=== PATIENT | male | born 1965 | race Caucasian/White ===

== ENCOUNTER 2019-12-29 10:48 | Emergency (ER) | payer OTHER, MEDICAID ==
[~2019-12-29] VITALS: Ht 198.1 cm; Wt 97.0 kg
[2019-12-29] MEDS ORDERED: SODIUM CHLORIDE 0.9% 1,000 ML IV ONE (11:48)
[2019-12-29 12:06] LABS: BASOPHILS % 0.5 % (0.0-2.0); EOSINOPHILS % 2.1 % (0.0-5.0); HEMATOCRIT. 38.8 % (42.0-52.0); HEMOGLOBIN. 13.1 g/dL (14.0-18.0); LYMPHOCYTES % 12.9 % (20.0-50.0); MEAN CORPUSCULAR VOLUME 85.8 fL (80.0-94.0); MEAN PLATELET VOLUME 8.5 fl (7.4-10.4); MONOCYTES % 12.2 % (2.0-8.0); NEUTROPHILS % 72.3 % (40.0-76.0); PLATELET 180 x1000/uL (130-400); RED BLOOD CELL COUNT 4.52 mill/uL (4.7-6.1); RED CELL DISTRIBUTION WIDTH 13.6 % (11.6-14.6)
[2019-12-29 12:12] LABS: CHLORIDE 106 mEq/L (98-107)
[2019-12-29 12:58] LABS: CLARITY URINE CLEAR (CLEAR); COLOR URINE YELLOW (YELLOW); KETONES URINE NEGATIVE (NEGATIVE); LEUKOCYTE ESTERASE URINE NEGATIVE (NEGATIVE); NITRITE URINE NEGATIVE (NEGATIVE); OCCULT BLOOD URINE NEGATIVE (NEGATIVE); PH URINE 5.5 (4.5-8.0); PROTEIN URINE NEGATIVE (NEGATIVE); SPECIFIC GRAVITY URINE 1.006 (1.005-1.030); UROBILINOGEN URINE 0.2 E.U./dL (0.2-1.0)
[2019-12-29 15:25] VITALS: BP 125/89
== END 2019-12-29 15:30 | disposition home or self-care (01) ==
LOC: ER 11:08
DX: B34.9 Viral infection, unspecified (principal); F12.10 Cannabis abuse, uncomplicated; Z88.0 Allergy status to penicillin; Z88.6 Allergy status to analgesic agent
CPT/HCPCS: 36415; 71045; 80053; 81003; 83880; 84484; 85025; 87804; 93005; 96360; 99285; J7030

== ENCOUNTER 2020-01-03 21:49 | Emergency (ER) | payer OTHER, MEDICAID ==
[~2020-01-03] VITALS: Ht 198.1 cm; Wt 90.0 kg
[2020-01-04 01:31] LABS: CLARITY URINE CLEAR (CLEAR); COLOR URINE YELLOW (YELLOW); KETONES URINE NEGATIVE (NEGATIVE); LEUKOCYTE ESTERASE URINE TRACE (NEGATIVE); NITRITE URINE NEGATIVE (NEGATIVE); OCCULT BLOOD URINE NEGATIVE (NEGATIVE); PH URINE 5.5 (4.5-8.0); PROTEIN URINE NEGATIVE (NEGATIVE); SPECIFIC GRAVITY URINE 1.018 (1.005-1.030); UROBILINOGEN URINE 0.2 E.U./dL (0.2-1.0)
[2020-01-04 02:18] LABS: HEMATOCRIT. 36.1 % (42.0-52.0); HEMOGLOBIN. 12.4 g/dL (14.0-18.0); MEAN CORPUSCULAR HEMOGLOBIN 29.3 pg (28.0-32.0); MEAN CORPUSCULAR VOLUME 85.4 fL (80.0-94.0); MEAN PLATELET VOLUME 8.3 fl (7.4-10.4); PLATELET 182 x1000/uL (130-400); RED BLOOD CELL COUNT 4.23 mill/uL (4.7-6.1); RED CELL DISTRIBUTION WIDTH 13.4 % (11.6-14.6)
[2020-01-04 02:22] LABS: CHLORIDE 108 mEq/L (98-107)
[2020-01-04 04:56] VITALS: BP 117/74
[2020-01-04 07:08] LABS: PLATELET ESTIMATE NORMAL
== END 2020-01-04 05:05 | disposition left against medical advice (07) ==
LOC: ER 21:49
DX: J20.9 Acute bronchitis, unspecified (principal); Z59.0 Homelessness; Z88.6 Allergy status to analgesic agent; Z88.0 Allergy status to penicillin
CPT/HCPCS: 36415; 71045; 80053; 81003; 83880; 85025; 87804; 99284

== ENCOUNTER 2020-01-04 08:27 | Emergency (ER) | payer OTHER, MEDICAID ==
[~2020-01-04] VITALS: Ht 198.1 cm; Wt 90.0 kg
[2020-01-04] MEDS ORDERED: VISCOUS LIDOCAINE 2% 15 ML UDC PO STA (11:08)
[2020-01-04] MEDS ORDERED: ACETAMINOPHEN 500MG TABLET PO ONE (11:15)
[2020-01-04 11:49] LABS: BASOPHILS % 0.8 % (0.0-2.0); EOSINOPHILS % 1.5 % (0.0-5.0); HEMATOCRIT. 37.4 % (42.0-52.0); HEMOGLOBIN. 12.8 g/dL (14.0-18.0); LYMPHOCYTES % 23.4 % (20.0-50.0); MEAN CORPUSCULAR HEMOGLOBIN 29.4 pg (28.0-32.0); MEAN CORPUSCULAR VOLUME 85.6 fL (80.0-94.0); MEAN PLATELET VOLUME 8.4 fl (7.4-10.4); MONOCYTES % 12.8 % (2.0-8.0); NEUTROPHILS % 61.5 % (40.0-76.0); PLATELET 166 x1000/uL (130-400); RED BLOOD CELL COUNT 4.37 mill/uL (4.7-6.1); RED CELL DISTRIBUTION WIDTH 13.3 % (11.6-14.6)
[2020-01-04 11:55] LABS: CHLORIDE 109 mEq/L (98-107)
[2020-01-04 13:41] VITALS: BP 127/82
== END 2020-01-04 14:54 | disposition home or self-care (01) ==
LOC: ER 09:43
DX: J02.9 Acute pharyngitis, unspecified (principal); Z88.6 Allergy status to analgesic agent; Z88.0 Allergy status to penicillin
CPT/HCPCS: 36415; 71045; 80053; 85025; 99284

== ENCOUNTER 2020-01-25 21:43 | Inpatient (IN) | payer OTHER, MEDICAID ==
[~2020-01-25] VITALS: Ht 195.6 cm; Wt 108.6 kg
[2020-01-25] MEDS ORDERED: CEFTRIAXONE 1 G PREMIX 50 ML IV ONE (23:30)
[2020-01-25] MEDS ORDERED: SODIUM CHLORIDE 0.9% 1000ML BAG (SEPSIS BOLUS) IV ONE (23:30)
[2020-01-26 01:18] LABS: BASOPHILS % 0.3 % (0.0-2.0); HEMATOCRIT. 39.4 % (42.0-52.0); HEMOGLOBIN. 13.9 g/dL (14.0-18.0); LYMPHOCYTES % 11.8 % (20.0-50.0); MEAN CORPUSCULAR HEMOGLOBIN 29.1 pg (28.0-32.0); MEAN CORPUSCULAR VOLUME 82.4 fL (80.0-94.0); MEAN PLATELET VOLUME 9.2 fl (7.4-10.4); MONOCYTES % 8.8 % (2.0-8.0); NEUTROPHILS % 79.1 % (40.0-76.0); PLATELET 157 x1000/uL (130-400); RED BLOOD CELL COUNT 4.78 mill/uL (4.7-6.1); RED CELL DISTRIBUTION WIDTH 13.4 % (11.6-14.6)
[2020-01-26 01:19] LABS: INR 1.3; PROTHROMBIN TIME 13.7 sec (9.6-11.0)
[2020-01-26 01:28] LABS: CHLORIDE 96 mEq/L (98-107)
[2020-01-26] MEDS ORDERED: POTASSIUM CHLORIDE INJ 40 MEQ in DEXT 5% WATER 250 ML IV ONE (02:15)
[2020-01-26 03:04] LABS: CLARITY URINE CLEAR (CLEAR); COLOR URINE YELLOW (YELLOW); KETONES URINE NEGATIVE (NEGATIVE); LEUKOCYTE ESTERASE URINE NEGATIVE (NEGATIVE); NITRITE URINE NEGATIVE (NEGATIVE); OCCULT BLOOD URINE NEGATIVE (NEGATIVE); PROTEIN URINE NEGATIVE (NEGATIVE); SPECIFIC GRAVITY URINE 1.009 (1.005-1.030); UROBILINOGEN URINE 0.2 E.U./dL (0.2-1.0)
[2020-01-26] MEDS ORDERED: SODIUM CHLORIDE 0.9% 1,000 ML IV ONE ×3 (03:45)
[2020-01-26] MEDS ORDERED: IPRATROPIUM/ALBUTEROL 0.5-3(2.5)MG/3ML NEB HHN PRN (08:45)
[2020-01-26] MEDS ORDERED: CLONIDINE 0.1MG TABLET PO PRN (08:45)
[2020-01-26] MEDS ORDERED: DIPHENHYDRAMINE 50MG/ML VIAL IV PRN (08:45)
[2020-01-26] MEDS ORDERED: ACETAMINOPHEN 325MG TABLET PO PRN (08:45)
[2020-01-26] MEDS ORDERED: ONDANSETRON HCL 4MG/2ML INJ IV PRN (08:45)
[2020-01-26] MEDS ORDERED: SODIUM CHLORIDE 0.9% 1,000 ML IV SCH (09:00)
[2020-01-26 10:00] VITALS: BP 95/60
[2020-01-26 11:00] VITALS: BP 95/60
[2020-01-26 12:00] VITALS: BP 100/62
[2020-01-26 16:00] VITALS: BP 97/64
[2020-01-26] MEDS: AZITHROMYCIN 500 MG TABLET PO SCH (18:20)
[2020-01-26 20:00] VITALS: BP 92/69
[2020-01-26] MEDS ORDERED: POTASSIUM CHLORIDE 20MEQ TABLET SR PO NR (22:00)
[2020-01-26] MEDS ORDERED: THROAT LOZENGES-BENZOCAINE/MENTH/CETYLPYRD CL LOZENGES MM PRN (22:00)
[2020-01-26 23:28] LABS: CREATINE KINASE 377 IU/L (39-308)
[2020-01-26 23:29] LABS: CREATINE KINASE MB FRACTION 2.3 ng/mL (0.5-3.6)
[2020-01-26] MEDS ORDERED: MAGNESIUM 2 G PREMIX 50 ML IV NR (23:30)
[2020-01-27] VITALS: BP 115/58
[2020-01-27 00:13] LABS: *AMPHETAMINES SCREEN URINE PRESUMTIVE POSITIVE (NEGATIVE); *BARBITURATES SCREEN URINE NEGATIVE (NEGATIVE); *BENZODIAZEPINES SCREEN URINE NEGATIVE (NEGATIVE); *COCAINE SCREEN URINE NEGATIVE (NEGATIVE); CANNABINOID URINE SCREEN PRESUMTIVE POSITIVE (NEGATIVE); METHADONE URINE SCREEN NEGATIVE (NEGATIVE); OPIATES URINE SCREEN NEGATIVE (NEGATIVE); PHENCYCLIDINE URINE SCREEN NEGATIVE (NEGATIVE)
[2020-01-27 04:00] VITALS: BP 108/62
[2020-01-27 06:47] LABS: HEMATOCRIT. 30.6 % (42.0-52.0); HEMOGLOBIN. 10.5 g/dL (14.0-18.0); MEAN CORPUSCULAR HEMOGLOBIN 28.9 pg (28.0-32.0); MEAN CORPUSCULAR VOLUME 84.2 fL (80.0-94.0); MEAN PLATELET VOLUME 9.4 fl (7.4-10.4); PLATELET 131 x1000/uL (130-400); RED BLOOD CELL COUNT 3.64 mill/uL (4.7-6.1); RED CELL DISTRIBUTION WIDTH 13.9 % (11.6-14.6)
[2020-01-27 06:49] LABS: CREATINE KINASE 287 IU/L (39-308)
[2020-01-27 06:50] LABS: CREATINE KINASE MB FRACTION 1.9 ng/mL (0.5-3.6)
[2020-01-27 08:00] VITALS: BP 90/56
[2020-01-27 08:35] LABS: CHLORIDE 111 mEq/L (98-107)
[2020-01-27 08:41] LABS: LDL CHOLESTEROL 31 mg/dL (5-100)
[2020-01-27 08:43] LABS: HDL CHOLESTEROL 12 mg/dL (40-59)
[2020-01-27] MEDS: AZITHROMYCIN 500 MG TABLET PO SCH (09:29)
[2020-01-27 12:00] VITALS: BP 99/63
[2020-01-27] MEDS ORDERED: IPRATROPIUM/ALBUTEROL 0.5-3(2.5)MG/3ML NEB HHN PRN (13:15)
[2020-01-27] MEDS: SULFAMETHOXAZOLE/TRIMETHOPRIM 800/160MG TABLET PO SCH (13:38)
[2020-01-27 15:52] VITALS: BP 100/63
[2020-01-27 16:32] LABS: PLATELET ESTIMATE NORMAL
[2020-01-27] MEDS ORDERED: POTASSIUM CHLORIDE 20MEQ TABLET SR PO NR (17:30)
[2020-01-27] MEDS ORDERED: PHENOL/SODIUM PHENOLATE 1.4% SRPAY 177ML MM PRN (17:45)
[2020-01-27 20:00] VITALS: BP 110/65
[2020-01-28] VITALS: BP 116/61
[2020-01-28 04:00] VITALS: BP 108/68
[2020-01-28 06:02] LABS: HEMOGLOBIN. 10.7 g/dL (14.0-18.0); MEAN CORPUSCULAR HEMOGLOBIN 29.1 pg (28.0-32.0); MEAN CORPUSCULAR VOLUME 84.2 fL (80.0-94.0); MEAN PLATELET VOLUME 9.1 fl (7.4-10.4); PLATELET 156 x1000/uL (130-400); RED BLOOD CELL COUNT 3.68 mill/uL (4.7-6.1); RED CELL DISTRIBUTION WIDTH 13.8 % (11.6-14.6)
[2020-01-28 06:06] LABS: CHLORIDE 112 mEq/L (98-107)
[2020-01-28] MEDS: AZITHROMYCIN 500 MG TABLET PO SCH (08:34)
[2020-01-28] MEDS: SULFAMETHOXAZOLE/TRIMETHOPRIM 800/160MG TABLET PO SCH (08:34)
[2020-01-28 09:08] LABS: ABSOLUTE LYMPHOCYTES 1.1 x10E3/uL (0.7-3.1); ABSOLUTE MONOCYTES 0.6 x10E3/uL (0.1-0.9); ABSOLUTE NEUTROPHILS 2.3 x10E3/uL (1.4-7.0); BASOPHILS 0 % (Not Estab.); HEMATOCRIT 30.7 % (37.5-51.0); HEMOGLOBIN 10.5 g/dL (13.0-17.7); IMMATURE GRANULOCYTES 0 % (Not Estab.); LYMPHOCYTES 27 % (Not Estab.); MEAN CORPUSCULAR HEMOGLOBIN 28.8 pg (26.6-33.0); MEAN CORPUSCULAR HGB CONC. 34.2 g/dL (31.5-35.7); MEAN CORPUSCULAR VOLUME 84 fL (79-97); MONOCYTES 15 % (Not Estab.); NEUTROPHILS 57 % (Not Estab.); PLATELETS 144 x10E3/uL (150-450); RBC 3.65 x10E6/uL (4.14-5.80); RED CELL DISTRIBUTION WIDTH 13.8 % (11.6-15.4); WBC 4.1 x10E3/uL (3.4-10.8)
[2020-01-28 10:06] LABS: % CD 3 POS. LYMPHOCYTES 90.9 % (57.5-86.2); % CD 4 POS. LYMPHOCYTES 17.4 % (30.8-58.5); % CD 8 POS. LYMPH 72.2 % (12.0-35.5); ABSOLUTE CD 3 1000 /uL (622-2402); ABSOLUTE CD 4 HELPER 191 /uL (359-1519); ABSOLUTE CD 8 SUPPRESSOR 794 /uL (109-897); CD4/CD8 RATIO 0.24 (0.92-3.72)
[2020-01-28] MEDS ORDERED: SULF1TAB44 PO (12:54)
[2020-01-28] MEDS ORDERED: AZIT500T8 PO (12:54)
[2020-01-28] MEDS: HYDROCODONE/ACETAMINOPHEN 5/325MG TABLET PO PRN ×2 (13:47→22:18)
[2020-01-28 14:30] LABS: PLATELET ESTIMATE NORMAL
[2020-01-28] MEDS ORDERED: THROAT LOZENGES-BENZOCAINE/MENTH/CETYLPYRD CL LOZENGES MM PRN (18:00)
[2020-01-28 20:00] VITALS: BP 106/66
[2020-01-28] MEDS: IPRATROPIUM/ALBUTEROL 0.5-3(2.5)MG/3ML NEB HHN SCH ×2 (20:43→20:46)
[2020-01-29] MEDS: IPRATROPIUM/ALBUTEROL 0.5-3(2.5)MG/3ML NEB HHN SCH (01:05)
[2020-01-29 04:00] VITALS: BP 103/71
[2020-01-29] MEDS: SULFAMETHOXAZOLE/TRIMETHOPRIM 800/160MG TABLET PO SCH (08:49)
[2020-01-29] MEDS: AZITHROMYCIN 500 MG TABLET PO SCH (08:49)
[2020-01-29] MEDS: HYDROCODONE/ACETAMINOPHEN 5/325MG TABLET PO PRN ×2 (08:50→21:32)
[2020-01-29 20:00] VITALS: BP 111/72
[2020-01-29] MEDS ORDERED: MAGNESIUM/ALUMINUM HYDROXIDE/SIMETHICONE 30ML UDC PO SCH (21:00)
[2020-01-29] MEDS ORDERED: DIPHENHYDRAMINE 12.5MG/5ML UDC PO SCH (21:00)
[2020-01-29] MEDS ORDERED: VISCOUS LIDOCAINE 2% 15 ML UDC MM SCH (21:00)
[2020-01-29] MEDS: MAGIC MOUTHWASH SSW SCH (21:12)
[2020-01-30] VITALS: BP 107/68
[2020-01-30] MEDS: HYDROCODONE/ACETAMINOPHEN 5/325MG TABLET PO PRN ×5 (02:01→20:28)
[2020-01-30 04:00] VITALS: BP 104/70
[2020-01-30 08:00] VITALS: BP 106/77
[2020-01-30] MEDS: MAGIC MOUTHWASH SSW SCH ×4 (08:28→20:11)
[2020-01-30] MEDS: SULFAMETHOXAZOLE/TRIMETHOPRIM 800/160MG TABLET PO SCH (08:29)
[2020-01-30] MEDS: AZITHROMYCIN 500 MG TABLET PO SCH (08:29)
[2020-01-30 15:10] VITALS: BP 101/73
[2020-01-30] MEDS: LORAZEPAM 2MG/ML CPJ IV PRN ×2 (15:39→21:57)
[2020-01-30 20:00] VITALS: BP 121/81
[2020-01-31] VITALS: BP 121/67
[2020-01-31 04:00] VITALS: BP 119/74
[2020-01-31 08:00] VITALS: BP 102/68
[2020-01-31] MEDS: SULFAMETHOXAZOLE/TRIMETHOPRIM 800/160MG TABLET PO SCH (09:03)
[2020-01-31] MEDS: HYDROCODONE/ACETAMINOPHEN 5/325MG TABLET PO PRN ×3 (09:04→20:55)
[2020-01-31] MEDS: MAGIC MOUTHWASH SSW SCH ×4 (09:05→20:55)
[2020-01-31] MEDS: LORAZEPAM 2MG/ML CPJ IV PRN ×2 (09:05→15:13)
[2020-01-31 12:00] VITALS: BP 124/74
[2020-01-31 15:43] VITALS: BP 95/59
[2020-01-31 20:00] VITALS: BP_SYST 101; BP_SYST 106; BP_DIAS 48; BP_DIAS 64
[2020-02-01] VITALS: BP 102/58
[2020-02-01 04:00] VITALS: BP 117/66
[2020-02-01 04:06] LABS: AMPHETAMINE CONF URINE Positive (.); CANNABINOID CONFIRMATION URINE Positive (.)
[2020-02-01] MEDS: HYDROCODONE/ACETAMINOPHEN 5/325MG TABLET PO PRN ×2 (05:40→20:48)
[2020-02-01 08:00] VITALS: BP 101/65
[2020-02-01] MEDS: SULFAMETHOXAZOLE/TRIMETHOPRIM 800/160MG TABLET PO SCH (08:50)
[2020-02-01] MEDS: MAGIC MOUTHWASH SSW SCH ×4 (08:50→20:49)
[2020-02-01] MEDS: LORAZEPAM 2MG/ML CPJ IV PRN ×2 (09:43→16:05)
[2020-02-01 12:00] VITALS: BP 103/72
[2020-02-01 16:00] VITALS: BP 101/72
[2020-02-01 20:00] VITALS: BP 101/67
[2020-02-02] VITALS: BP 102/64
[2020-02-02] MEDS: LORAZEPAM 2MG/ML CPJ IV PRN ×2 (01:39→21:31)
[2020-02-02 04:00] VITALS: BP 104/73
[2020-02-02 07:13] LABS: HEMATOCRIT. 42.2 % (42.0-52.0); HEMOGLOBIN. 14.5 g/dL (14.0-18.0); MEAN CORPUSCULAR HEMOGLOBIN 29.3 pg (28.0-32.0); MEAN CORPUSCULAR VOLUME 84.9 fL (80.0-94.0); MEAN PLATELET VOLUME 8.6 fl (7.4-10.4); PLATELET 289 x1000/uL (130-400); RED BLOOD CELL COUNT 4.97 mill/uL (4.7-6.1); RED CELL DISTRIBUTION WIDTH 13.9 % (11.6-14.6)
[2020-02-02 08:00] VITALS: BP 111/69
[2020-02-02] MEDS: SULFAMETHOXAZOLE/TRIMETHOPRIM 800/160MG TABLET PO SCH (08:48)
[2020-02-02] MEDS: MAGIC MOUTHWASH SSW SCH ×4 (08:49→21:31)
[2020-02-02] MEDS: HYDROCODONE/ACETAMINOPHEN 5/325MG TABLET PO PRN ×2 (10:33→21:30)
[2020-02-02 10:57] LABS: ATYPICAL LYMPHOCYTES 1; PLATELET ESTIMATE NORMAL
[2020-02-02 12:00] VITALS: BP 105/75
[2020-02-02 16:00] VITALS: BP 107/70
[2020-02-02 20:00] VITALS: BP 113/83
[2020-02-03] VITALS: BP 106/76
[2020-02-03 04:00] VITALS: BP 104/74
[2020-02-03 08:00] VITALS: BP 110/78
[2020-02-03] MEDS: SULFAMETHOXAZOLE/TRIMETHOPRIM 800/160MG TABLET PO SCH (09:14)
[2020-02-03] MEDS: LORAZEPAM 2MG/ML CPJ IV PRN ×2 (09:14→16:22)
[2020-02-03] MEDS: MAGIC MOUTHWASH SSW SCH ×4 (09:21→20:21)
[2020-02-03 12:00] VITALS: BP 111/75
[2020-02-03 16:00] VITALS: BP 111/79
[2020-02-03 20:00] VITALS: BP 102/69
[2020-02-03] MEDS ORDERED: LORAZEPAM 1MG TABLET PO NR (20:00)
[2020-02-04] VITALS: BP 100/65
[2020-02-04 04:00] VITALS: BP 102/64
[2020-02-04] MEDS: LORAZEPAM 1MG TABLET PO PRN ×3 (05:02→22:09)
[2020-02-04 08:00] VITALS: BP 113/72
[2020-02-04] MEDS: MAGIC MOUTHWASH SSW SCH ×4 (09:25→21:00)
[2020-02-04 12:00] VITALS: BP 103/66
[2020-02-04 16:00] VITALS: BP 105/72
[2020-02-04 20:00] VITALS: BP 110/73
[2020-02-04] MEDS: HYDROCODONE/ACETAMINOPHEN 5/325MG TABLET PO PRN (23:58)
[2020-02-05] VITALS: BP 102/68
[2020-02-05 04:00] VITALS: BP 100/73
[2020-02-05] MEDS: LORAZEPAM 1MG TABLET PO PRN (06:09)
[2020-02-05 08:00] VITALS: BP 105/68
[2020-02-05] MEDS: MAGIC MOUTHWASH SSW SCH ×2 (08:19→13:00)
[2020-02-05] MEDS: HYDROCODONE/ACETAMINOPHEN 5/325MG TABLET PO PRN (08:20)
[2020-02-05 12:00] VITALS: BP 103/70
[2020-02-07 17:14] LABS: *HIV-1 RNA BY PCR 4850 copies/mL (.)
== END 2020-02-05 14:00 | disposition left against medical advice (07) | DRG 205 ==
LOC: ER 21:43 → 7EST 01-26 03:42 → ENRESERV 01-26 09:12 → 6EST 01-27 15:38
PROVIDERS: ADMIT Internal Medicine; ATTEND Internal Medicine
DX: J68.0 Bronchitis and pneumonitis due to chemicals, gases, fumes and vapors (principal); J96.00 Acute respiratory failure, unspecified whether with hypoxia or hypercapnia; I26.99 Other pulmonary embolism without acute cor pulmonale; E44.0 Moderate protein-calorie malnutrition; E87.1 Hypo-osmolality and hyponatremia; B20 Human immunodeficiency virus [HIV] disease; J06.9 Acute upper respiratory infection, unspecified; D64.9 Anemia, unspecified; E86.1 Hypovolemia; E87.6 Hypokalemia; D72.810 Lymphocytopenia; E80.6 Other disorders of bilirubin metabolism; F19.90 Other psychoactive substance use, unspecified, uncomplicated; R79.82 Elevated C-reactive protein (CRP); F15.99 Other stimulant use, unspecified with unspecified stimulant-induced disorder; Z20.828 Contact with and (suspected) exposure to other viral communicable diseases; Z53.29 Procedure and treatment not carried out because of patient's decision for other reasons; K12.0 Recurrent oral aphthae; F14.129 Cocaine abuse with intoxication, unspecified; Z91.14 Patient's other noncompliance with medication regimen; Z59.0 Homelessness; Z68.28 Body mass index [BMI] 28.0-28.9, adult; Z79.899 Other long term (current) drug therapy; Z88.0 Allergy status to penicillin; Z88.6 Allergy status to analgesic agent; Z03.818 Encounter for observation for suspected exposure to other biological agents ruled out
CPT/HCPCS: 36415; 71045; 80048; 80053; 80061; 80305; 80307; 80349; 80359; 81003; 82550; 82553; 82728; 83605; 83615; 83735; 84132; 84145; 84443; 84484; 85025; 85379; 86140; 86359; 86360; 87536; 87635; 87804; 93005; 94640; 97110; 97116; 97162; 99291; J0696; J2060; J3475; J3480; J7030; J7060